=== PATIENT | male | born 1995 | race African-American/Black ===

== ENCOUNTER 2019-12-07 23:24 | Emergency (ER) | payer OTHER ==
--- NOTE | 2019-12-07 23:28 | PDOC ---
Rapid Medical Evaluation Time Seen by Provider: 12/07/19 23:26 Medical Evaluation: Allergies Allergy/AdvReac Type Severity Reaction Status Date / Time No Known Allergies Allergy Verified 10/02/19 15:53 12/07/19 23:26 I performed a brief in-person evaluation of this patient. Pt is a 24 y/o male who presents to the ED with a R ankle injury that he sustained earlier today when he slipped down the steps. He injured it at about 9:30 pm. He states he fell down the entire flight of steps but missed the last step and landed awkwardly on his feet. Pertinent physical exam findings: + limping, lateral tenderness to palpation I have ordered the following: R ankle xray Patient to proceed to ED for further evaluation. Discharge Disposition - Diagnosis Right ankle injury - Referrals - Patient Instructions - Post Discharge Activity
[2019-12-07 23:35] VITALS: BP 130/66; PULSE 75; TEMP 98; BMI 23.7
--- NOTE | 2019-12-08 00:06 | PDOC ---
History of Present Illness - General Chief Complaint: Pain Stated Complaint: ANKLE PAIN Time Seen by Provider: 12/07/19 23:26 - History of Present Illness Initial Comments: 12/08/19 00:01 24 yo male with pmh of ankle sprains presents to ED for right sided foot pain. Pt was running down stairs and missed last step and inverted his foot. Pt has pain on top of foot in the middle. Pt explains it is 8/10 in pain worse with movement. Has not taken anything for pain. Pt still able to ambulate but with limp. Pt denies any loss of sensation to toes. Pt has had prior history of ankle sprains, where he comes in gets xray and gets emiliano bandage and feels beter. PMH: denies meds: denies PSH: denies Allergies: denies Social: denies drugs, alcohol, and tobacco. Works as security operations center analyst. Past History - Medical History Allergies/Adverse Reactions: Allergies Allergy/AdvReac Type Severity Reaction Status Date / Time No Known Allergies Allergy Verified 10/02/19 15:53 Home Medications: Ambulatory Orders No Home Medications 0 dose .ROUTE UTDICT 02/26/13 Naproxen [Naprosyn -] 500 mg PO BID PRN #14 tablet 09/26/14 - Psycho-Social/Smoking History Smoking Status: No Smoking History: Never smoked Have you smoked in the past 12 months: No Number of Cigarettes Smoked Daily: 0 - Substance Abuse Hx (Audit-C & DAST Scrn) How often the patient has a drink containing alcohol: Never Score: In Men: 4 or > Positive; In Women: 3 or > Positive: 0 Screen Result (Pos requires Nsg. Audit-10AR): Negative In the last yr the pt used illegal drug/Rx for NonMed reason: No Score: Yes response is considered Positive: 0 Screen Result (Positive result requires Nsg. DAST-10): Negative Review of Systems - Review of Systems Comments:: 12/08/19 00:03 GENERAL/CONSTITUTIONAL: No fever or chills. No weakness. HEAD, EYES, EARS, NOSE AND THROAT: No change in vision. No ear pain or discharge. No sore throat. CARDIOVASCULAR: No chest pain or shortness of breath RESPIRATORY: No cough, wheezing, or hemoptysis. GASTROINTESTINAL: No nausea, vomiting, diarrhea or constipation. GENITOURINARY: No dysuria, frequency, or change in urination. MUSCULOSKELETAL: Right ankle pain. No neck or back pain. SKIN: No rash NEUROLOGIC: No headache, vertigo, loss of consciousness, or change in strength/sensation. ENDOCRINE: No increased thirst. No abnormal weight change ALLERGIC/IMMUNOLOGIC: No hives or skin allergy. *Physical Exam - Vital Signs Last Vital Signs Temp Pulse Resp BP Pulse Ox 98 F 75 20 130/66 100 12/07/19 23:26 12/07/19 23:26 12/07/19 23:26 12/07/19 23:12/07/19 23: - Physical Exam 12/08/19 00:04 GENERAL: Awake, alert, and fully oriented, in no acute distress HEAD: No signs of trauma, normocephalic, atraumatic EYES: PERRLA, EOMI, sclera anicteric, conjunctiva clear ENT: Auricles normal inspection, hearing grossly normal, nares patent, oropharynx clear without exudates. Moist mucosa NECK: Normal ROM, supple, no lymphadenopathy, JVD, or masses LUNGS: No distress, speaks full sentences, clear to auscultation bilaterally HEART: Regular rate and rhythm, normal S1 and S2, no murmurs, rubs or gallops, peripheral pulses normal and equal bilaterally. ABDOMEN: Soft, nontender, normoactive bowel sounds. No guarding, no rebound. No masses EXTREMITIES : Tenderness to palpation along entire right foot but mainly along middle cuneiform area. Restricted ROM of right foot. Neurovascularly intact and full ROM of digits. NEUROLOGICAL: Cranial nerves II through XII grossly intact. Normal speech, normal gait, no focal sensorimotor deficits SKIN: Warm, Dry, normal turgor, no rashes or lesions noted Medical Decision Making - Medical Decision Making 12/08/19 00:06 24 yo male with right foot pain with neurovasculature intact. Will rule out fracture with xray and manage. 12/08/19 00:35 PT xray came back negative. Talked to radiologist diabetes education coordinator to confirm and said lateral xray may be sesamoid bone and not fracture due to not being on two planes. Gave patient emiliano bandage and crutches. Pt denied foot brace. Pt was aware of consequences and still did not want. Pt agreed to see ortho within 2 days. Discharge - Discharge Information Problems reviewed: Yes Clinical Impression/Diagnosis: Right ankle injury Qualifiers: Encounter type: initial encounter Qualified Code(s): S99.911A - Unspecified injury of right ankle, initial encounter Right foot injury Qualifiers: Encounter type: initial encounter Qualified Code(s): S99.921A - Unspecified injury of right foot, initial encounter Condition: Stable Disposition: HOME - Follow up/Referral Referrals: José Gaines MD [Staff Physician] - - Patient Discharge Instructions Patient Printed Discharge Instructions: Ankle Sprain Additional Instructions: You came into the ED for right sided foot pain. This is most likely a ankle sprain. At the ED you were given an ankle and foot xray which both were read as no fracture. We wrapped your right ankle with emiliano bandage, gave you crutches, and a warm compress. We also gave you a foot brace but you declined. You were given discrete instructions of the risk of not taking foot brace and you understood but still declined. Your workup is not complete without following up with orthopedics within 1-2 days. The referral would be attached. Please return to the ED if you: - have worsening foot pain - unable to feel foot or toes - unable to ambulate on feet - any emergent symptoms If you think you have an emergency, call for medical help right away - Post Discharge Activity
--- NOTE | 2019-12-08 00:17 | PDOC ---
Documentation entered by David Bynum SCRIBE, acting as scribe for Luly Mcbride MD. Luly Mcbride MD: This documentation has been prepared by the narendrae, David Bynum SCRIBE, under my direction and personally reviewed by me in its entirety. I confirm that the documentation accurately reflects all work, treatment, procedures, and medical decision making performed by me. Attending Attestation - Resident Resident Name: [email or web address] - ED Attending Attestation I have performed the following: I have examined & evaluated the patient, The case was reviewed & discussed with the resident, I agree w/resident's findings & plan, Exceptions are as noted - HPI HPI: 12/08/19 00:11 The patient is a 24 year old male with a significant past medical history of gonorrhea 1 yr ago who presents to the emergency department for evaluation of a right ankle injury s/p slipping down the bottom step in a staircase tonight. The patient notes he missed the bottom step while walking down stairs causing him to roll/invert his ankle. He endorses 8/10 pain and swelling to both the right foot and ankle which is worsened with movement and bearing weight. The patient reports a history of ankle sprains. The patient denies LOC. The patient denies chest pain and shortness of breath. Denies fever, chills and/or any GI symptoms. Denies any symptoms. Denies any other symptoms. Allergies: NKDA - Physicial Exam PE: 12/08/19 00:01 GENERAL: Awake, alert, and fully oriented, in no acute distress HEAD: No signs of trauma EXTREMITIES: R ankle with tenderness to medial and lateral malleoli. +Mild tenderness to the mid-foot. Remainder of extremiteis with normal range of motion, no edema. No clubbing or cyanosis. No cords, erythema, or tenderness NEUROLOGICAL: Cranial nerves II through XII grossly intact. Normal speech. Motor and sensation intact. SKIN: Warm, Dry, normal turgor, no rashes or lesions noted. - Medical Decision Making XR read as negative by imaging mass communications instructor. He does have mid-foot tenderness. Will place splint as a precaution and have him f/u with podiatry. Discharge - Discharge Information Problems reviewed: Yes Clinical Impression/Diagnosis: Right ankle injury Qualifiers: Encounter type: initial encounter Qualified Code(s): S99.911A - Unspecified injury of right ankle, initial encounter Right foot injury Qualifiers: Encounter type: initial encounter Qualified Code(s): S99.921A - Unspecified injury of right foot, initial encounter Condition: Stable Disposition: HOME - Follow up/Referral - Patient Discharge Instructions - Post Discharge Activity
== END 2019-12-08 00:51 | disposition home or self-care (01) ==
LOC: JER 23:24
DX: S99.911A Unspecified injury of right ankle, initial encounter (principal); S99.921A Unspecified injury of right foot, initial encounter
CPT/HCPCS: 73610-TC-RT-FY; 73630-TC-RT-FY; 99283-25

== ENCOUNTER 2020-02-06 14:38 | Emergency (ER) | payer OTHER ==
[2020-02-06] MEDS ORDERED: AZITHROMYCIN 500 MG TABLET PO ONE (14:47)
[2020-02-06 14:50] VITALS: BP 146/64; PULSE 69; TEMP 98.1; BMI 24.4
[2020-02-06] MEDS ORDERED: AZITHROMYCIN 250 MG TABLET ONE (15:12)
[2020-02-06 15:15] LABS: EPI CELLS 0 /uL (0-25.1); HYALINE CASTS 19 /uL (0-3.1); URINE APPEARANCE CLEAR; URINE BACTERIA 154 /uL (0-1359); URINE BILIRUBIN NEGATIVE (NEGATIVE); URINE COLOR DK YELLOW; URINE GLUCOSE (UA) NEGATIVE (NEGATIVE); URINE KETONE TRACE (NEGATIVE); URINE LEUK ESTERASE 2+ (NEGATIVE); URINE NITRITE NEGATIVE (NEGATIVE); URINE PROTEIN TRACE (NEGATIVE); URINE RBC 5 /uL (0-23.9); URINE WBC 778 /uL (0-25.8)
--- NOTE | 2020-02-06 15:17 | PDOC ---
History of Present Illness - General Chief Complaint: Penile Drainage Stated Complaint: SICK Time Seen by Provider: 02/06/20 14:46 History Source: Patient Exam Limitations: Clinical Condition - History of Present Illness Travel History: No Initial Comments: 02/06/20 15:13 Patient with past medical history of positive gonorrhea and chlamydia presented with complaint of 2-day history of penile discharge with mild penile discomfort with urination similar to when he had his gonorrhea symptoms 5 months ago. Patient was treated in the ER here with ceftriaxone and azithromycin and patient claims he has not had any sex since last treatment for GC but symptoms came back again 2 days ago. Denies testicular pain or swelling, abdominal pain, nausea, vomiting, fever, chill, shortness of breath. Denies any other symptoms Timing/Duration: reports: other (2 days) Past History - Medical History Allergies/Adverse Reactions: Allergies Allergy/AdvReac Type Severity Reaction Status Date / Time No Known Allergies Allergy Verified 02/06/20 14:45 Home Medications: Ambulatory Orders No Home Medications 0 dose .ROUTE UTDICT 02/26/13 Naproxen [Naprosyn -] 500 mg PO BID PRN #14 tablet 09/26/14 Doxycycline Hyclate 100 mg PO BID 7 Days #14 capsule 02/06/20 COPD: No - Psycho-Social/Smoking History Smoking Status: No Smoking History: Never smoked Have you smoked in the past 12 months: No Number of Cigarettes Smoked Daily: 0 Review of Systems - Review of Systems Able to Perform ROS?: Yes Is the patient limited Ethiopian proficient: No Constitutional: No: Chills, Fever, Malaise HEENTM: No: Symptoms Reported, See HPI, Eye Pain, Blurred Vision, Tearing, Recent change in vision, Double Vision, Cataracts, Ear Pain, Ocular Prothesis, Ear Discharge, Nose Pain, Nose Congestion, Tinnitus, Nose Bleeding, Hearing Loss, Throat Pain, Throat Swelling, Mouth Pain, Dental Problems, Difficulty Swallowing, Mouth Swelling, Other Respiratory: No: Symptoms reported, See HPI, Cough, Orthopnea, Shortness of Breath, SOB with Exertion, SOB at Rest, Stridor, Wheezing, Productive cough, Hemoptysis, Other Cardiac (ROS): No: Symptoms Reported, See HPI, Chest Pain, Edema, Irregular Heart Rate, Lightheadedness, Palpitations, Syncope, Chest Tightness, Other ABD/GI: No: Symptoms Reported, Nausea, Vomiting : Yes: Symptoms Reported, See HPI, Discharge (penile discharge), Testicular Pain (penile irritation). No: Dysuria, Testicular Mass, Testicular Swelling, Lesions Musculoskeletal: No: Symptoms Reported Integumentary: No: Symptoms Reported Neurological: No: Symptoms reported, Headache, Dizziness All Other Systems: Reviewed and Negative *Physical Exam - Vital Signs Last Vital Signs Temp Pulse Resp BP Pulse Ox 98.1 F 69 18 146/64 99 02/06/20 14:41 02/06/20 14:41 02/06/20 14:41 02/06/20 14:41 02/06/20 14:41 - Physical Exam General Appearance: Yes: Nourished, Appropriately Dressed. No: Apparent Distress HEENT: positive: Normal ENT Inspection Neck: negative: Supple Respiratory/Chest: positive: Lungs Clear, Normal Breath Sounds. negative: Respiratory Distress, Accessory Muscle Use Cardiovascular: positive: Regular Rhythm, Regular Rate Gastrointestinal/Abdominal: positive: Normal Bowel Sounds. negative: Tender, Distended, Guarding Male Genitalia: positive: normal genitalia, discharge (small yellow thick d/c from meatus). negative: testicular tenderness, testicular mass, epididymus tender, hernia Musculoskeletal: positive: Normal Inspection. negative: CVA Tenderness Extremity: positive: Normal Inspection, Normal Range of Motion Integumentary: positive: Normal Color. negative: Erythema, Rash Neurologic: positive: Fully Oriented, Alert, Normal Mood/Affect, Normal Response, Motor Strength 5/5 Medical Decision Making - Medical Decision Making 02/06/20 15:15 Patient with past medical history of positive gonorrhea and chlamydia presented with complaint of 2-day history of penile discharge with mild penile discomfort with urination similar to when he had his gonorrhea symptoms 5 months ago. Patient was treated in the ER here with ceftriaxone and azithromycin and patient claims he has not had any sex since last treatment for GC but symptoms came back again 2 days ago. Denies testicular pain or swelling, abdominal pain, nausea, vomiting, fever, chill, shortness of breath. Denies any other symptoms Exam significant for small amount of yellow thick discharge from meatus of penis. No visible lesions. No tenderness to testicles or scrotum. No swelling to the testicles. No abdominal tenderness. Culture of penile discharge sent for GC and chlamydia tests. UA and urine culture sent. Patient being treated again with ceftriaxone 250 mg IM and azithromycin 1 g p.o. in the ER and will be discharged home on doxycycline 100 twice daily for a week to make sure he is treated properly at this time since patient report he never had any sex last time and his symptoms came back. Patient stable for discharge with urology follow-up 02/06/20 15:36 UA shows mild leukocytosis with WBC. Patient stable for discharge on doxycycline antibiotics twice daily for a week pending lab results with urology follow-up. Discussed with patient no unprotected sex for at least 4 weeks and stressed the importance of urology follow-up Discharge - Discharge Information Problems reviewed: Yes Clinical Impression/Diagnosis: Drainage from penis, Dysuria Condition: Stable Disposition: HOME - Admission No - Additional Discharge Information Prescriptions: Doxycycline Hyclate 100 mg PO BID 7 Days #14 capsule - Follow up/Referral Referrals: Lopez Condon MD [Staff Physician] - - Patient Discharge Instructions Patient Printed Discharge Instructions: Facts About Sexually Transmitted Infections Additional Instructions: You were treated empirically today for gonorrhea and chlamydia. you are also being sent home on antibiotics twice a day for week. Take prescribed antibiotics and finish it. Follow-up with referring urologist. You will be contacted in a few days with lab results - Post Discharge Activity
== END 2020-02-06 15:35 | disposition home or self-care (01) ==
LOC: JER 14:38 → JERFT 14:38
PROC: 3E0233Z Introduction of Anti-inflammatory into Muscle, Percutaneous Approach (ICD-10-PCS; principal; 2020-02-06)
DX: R30.0 Dysuria (principal); R36.9 Urethral discharge, unspecified
CPT/HCPCS: 36415; 81003; 87086; 87491; 87591; 87661; 99284-25